=== PATIENT | male | born 1970 ===

== ENCOUNTER → 2017-02-21 | Outpatient (CLI) | payer BC ==
[2017-02-21 18:32] LABS: COMPLETE YES; EOS % 0.7 %; HEMATOCRIT 42.6 % (42-52); IG% 0.1 %; LYMPH % 25.9 %; MEAN CELL VOLUME 90.6 fL (80-100); MEAN CORPUSCULAR HEMOGLOBIN 30.9 pg (25-34); NEUT % 65.3 %; PLATELET COUNT 261 K/uL (130-400); WHITE BLOOD COUNT 7.34 K/uL (4.8-10.8)
[2017-02-21 18:41] LABS: ALT/SGPT 21 U/L (12-78); BLOOD UREA NITROGEN 15 mg/dl (7-18); BUN/CREATININE RATIO 13.5 (10-20); CALCIUM 9.1 mg/dl (8.5-10.1); CARBON DIOXIDE 27 mmol/L (21-32); CHLORIDE 108 mmol/L (98-107); CHOLESTEROL 236 mg/dl (0-200); GLUCOSE 80 mg/dl (70-99); POTASSIUM 3.9 mmol/L (3.5-5.1); SODIUM 140 mmol/L (136-145); TRIGLYCERIDES 189 mg/dl (0-150); VERY LOW DENSITY LIPOPROT CALC 38 mg/dl
[2017-02-21 18:46] LABS: ALB/GLOB RATIO 1.2 (0.9-2); ALKALINE PHOSPHATASE 76 U/L (45-117); AST/SGOT 12 U/L (15-37); CHOLESTEROL/HDL RATIO 9.1; HDL CHOLESTEROL 26 mg/dl; LDL CHOLESTEROL CALCULATED 172 mg/dl
== END | disposition home or self-care (01) ==
LOC: C.LABSPEC 10:50
PROVIDERS: ATTEND Family Medicine
DX: Z00.00 Encounter for general adult medical examination without abnormal findings (principal); I10 Essential (primary) hypertension; Z12.5 Encounter for screening for malignant neoplasm of prostate; E78.2 Mixed hyperlipidemia